=== PATIENT | female | born 1995 | race Caucasian/White ===

== ENCOUNTER 2020-04-13 16:05 | Emergency (ER) | payer MEDICAID ==
[~2020-04-13] VITALS: Ht 165.1 cm; Wt 74.8 kg
[2020-04-13 16:26] VITALS: BP 123/79
== END 2020-04-13 17:15 | disposition home or self-care (01) ==
LOC: ER 16:05
DX: N76.4 Abscess of vulva (principal); Z48.01 Encounter for change or removal of surgical wound dressing

== ENCOUNTER 2021-11-24 20:01 | Emergency (ER) | payer MEDICAID ==
[~2021-11-24] VITALS: Ht 165.1 cm; Wt 70.3 kg
[2021-11-24 20:01] VITALS: BP 123/77
[2021-11-24 20:41] LABS: Urine Bacteria FEW /hpf (None Seen); Urine Blood 3+ /uL (Negative); Urine Mucus FEW (None Seen); Urine Specific Gravity 1.028 (1.001-1.035); Urine WBC 147 /hpf (0 - 5)
[2021-11-25 01:00] LABS: Basophils # (auto) 0 10 ^3/uL (0-0.2); Basophils % (auto) 0.4 % (0.0-2.0); Eosinophils # (auto) 0 10 ^3/uL (0-0.8); Eosinophils % (auto) 0.4 % (0.0-7.0); Hematocrit 42.5 % (36.0-46.0); Hemoglobin 14.5 g/dL (12.2-16.2); Lymphocytes # (auto) 2.6 10 ^3/uL (0.4-5.4); Lymphocytes % (auto) 28.2 % (10.0-50.0); Mean Corpuscular Hemoglobin 30.8 pg (28.0-32.0); Mean Corpuscular Volume 90.5 fL (80.0-100.0); Monocytes # (auto) 0.7 10 ^3/uL (0-1.3); Monocytes % (auto) 7.6 % (0.0-12.0); Neutrophils # (auto) 5.9 10 ^3/uL (1.6-8.6); Neutrophils % (auto) 63.4 % (37.0-80.0); Nucleated Red Blood Cells % 0.1 %; Red Blood Cells 4.69 10^6/uL (4.0-5.20); Red Cell Distribution Width 13.9 % (11.8-14.3); White Blood Cell 9.3 10^3/uL (4.4-10.8)
[2021-11-25 01:17] LABS: Albumin 3.9 g/dL (3.4-5.0); BUN/Creatinine Ratio 10.2; Calcium 8.8 mg/dL (8.5-10.1); Potassium 3.7 mmol/L (3.5-5.1)
[2021-11-25] MEDS ORDERED: CEFP200T15 PO (01:35)
[2021-11-25 01:36] LABS: Bilirubin, Total 0.5 mg/dL (0.2-1.0); Total Protein 7.1 g/dL (6.4-8.2)
== END 2021-11-25 03:44 | disposition left against medical advice (07) ==
LOC: ER 20:01
DX: O20.0 Threatened abortion (principal); O23.41 Unspecified infection of urinary tract in pregnancy, first trimester; N39.0 Urinary tract infection, site not specified; O99.331 Smoking (tobacco) complicating pregnancy, first trimester; F17.210 Nicotine dependence, cigarettes, uncomplicated; Z79.899 Other long term (current) drug therapy; Z3A.01 Less than 8 weeks gestation of pregnancy
CPT/HCPCS: 36415; 76801; 80053; 81001; 84702; 85025; 86850; 86900; 86901